=== PATIENT | male | born 1960 | race Caucasian/White ===

== ENCOUNTER 2025-02-18 00:54 | Emergency (ER) | payer OTHER ==
[~2025-02-18] VITALS: Ht 177.8 cm; Wt 75.5 kg
[2025-02-18 01:26] LABS: IMMATURE GRANULOCYTE ABSOLUTE 0.04 K/uL (0-1); NUCLEATED RED BLOOD CELLS 0.0 % (0.0-0.19); PLATELET COUNT (AUTO) 234 K/uL (130-400); RED BLOOD CELL COUNT(AUTO) 5.18 MIL/uL (4.50-6.20); RED CELL DISTRIBUTION WIDTH 13.2 % (11.0-15.5); WHITE BLOOD COUNT (AUTO) 11.4 K/uL (4.8-10.8)
[2025-02-18 01:32] LABS: CREATININE 1.5 mg/dL (0.5-1.3); GLOMERULAR FILTR. RATE CALC 52.0 mL/min (>90); GLUCOSE,RANDOM 141.0 mg/dL (70-105); SODIUM SERUM 138.0 mmol/L (136-145); UREA NITROGEN, BLOOD 24.0 mg/dL (7-18)
[2025-02-18] MEDS: LACTATED RINGERS 1000ML IV STA ×2 (01:35→04:45)
--- NOTE | 2025-02-18 01:35 | ERN ---
General Chief Complaint: Flank Pain Stated Complaint: LEFT FLANK PAIN Time Seen by MD: 01:00 Source: patient History of Present Illness Initial Comments Patient is a healthy 64-year-old male who comes in with intermittent left groin and testicular pain that seems to migrate around to his left flank. This is the 1st time he has had this problem. It also seems to be associated with inability to urinate. Otherwise asymptomatic no fevers no chills. Allergies: Coded Allergies: No Known Drug Allergies (Unverified Allergy, Unknown, 02/18/25) Past Medical History Past Medical History: No Pertinent History Past Surgical History: None Constitutional: (-) chills, (-) diaphoresis, (-) fever, (-) malaise, (-) weakness, (-) other documentation EENTM: (-) eye pain, (-) blurred vision, (-) tearing, (-) double vision, (-) ear pain, (-) ear discharge, (-) nose pain, (-) nose congestion, (-) throat pain, (-) Throat swelling, (-) mouth pain, (-) tooth pain, (-) mouth swelling, (-) other documentation Respiratory: (-) cough, (-) orthopnea, (-) short of breath, (-) stridor, (-) wheezing, (-) other documentation Cardiovascular: (-) chest pain, (-) edema, (-) palpitations, (-) syncope, (-) dyspnea on exertion, (-) other documentation Gastrointestinal/Abdominal: (-) nausea, (-) vomiting, (-) diarrhea, (-) abdominal pain, (-) abdominal distention, (-) constipation, (-) rectal bleeding, (-) dark stool/melena, (-) other documentation Genitourinary: (-) penile discharge, (-) dysuria, (-) frequency, (-) hematuria, (-) pain, (-) other documentation Physical Exam General Appearance: (+) no apparent distress Orientation: (+) alert, (+) oriented x 3 Head/Face Trauma: No Eye: bilateral eye normal inspection, bilateral eye PERRL, bilateral eye EOMI Ear, Nose, Throat: (+) hearing grossly normal, (+) normal ENT inspection, (+) moist mucous membraine Neck: (+) normal inspection, (+) supple, (+) full range of motion Respiratory: (+) chest non-tender, (+) lungs clear, (+) well ventilated Heart: (+) regular, (+) no gallop Vascular: (+) no edema, (+) normal peripheral pulse, (+) no JVD Gastrointestinal: (+) soft, (+) non-tender, (+) bowel sound present Back: (+) no CVA tenderness Results Laboratory and Microbiology Lab and Micro Result Laboratory Tests Test 02/18/25 01:12 02/18/25 03:38 White Blood Count 11.4 K/uL (4.8-10.8) H Red Blood Count 5.18 MIL/uL (4.50-6.20) Hemoglobin 15.4 g/dL (14.0-18.0) Hematocrit 45.3 % (42-54) Mean Corpuscular Volume 87.5 fL (79-99) Mean Corpuscular Hemoglobin 29.7 pg (27.0-33.0) Mean Corpuscular Hemoglobin Concent 34.0 g/dL (32.0-36.0) Red Cell Distribution Width 13.2 % (11.0-15.5) Platelet Count 234 K/uL (130-400) Mean Platelet Volume 10.5 fL (7.5-10.5) Immature Granulocyte % (Auto) 0.4 % (0-1) Neutrophils (%) (Auto) 84.4 % (40.0-77.0) H Lymphocytes (%) (Auto) 5.0 % (21.0-51.0) L Monocytes (%) (Auto) 9.6 % (3.0-13.0) Eosinophils (%) (Auto) 0.2 % (0.0-8.0) Basophils (%) (Auto) 0.4 % (0.0-5.0) Neutrophils # (Auto) 9.6 K/uL (1.8-7.7) H Lymphocytes # (Auto) 0.6 K/uL (1.0-4.8) L Monocytes # (Auto) 1.1 K/uL (0.1-1.0) H Eosinophils # (Auto) 0.02 K/uL (0.00-0.70) Basophils # (Auto) 0.04 K/uL (0.00-0.20) Absolute Immature Granulocyte (auto 0.04 K/uL (0-1) Nucleated Red Blood Cells 0.0 % (0.0-0.19) White Cell Morphology Comment See comments Sodium Level 138 mmol/L (136-145) Potassium Level 3.8 mmol/L (3.5-5.1) Chloride Level 98 mmol/L (101-111) L Carbon Dioxide Level 31 mmol/L (21-32) Blood Urea Nitrogen 24 mg/dL (7-18) H Creatinine 1.5 mg/dL (0.5-1.3) H Glomerular Filtration Rate Calc 52 mL/min (>90) Random Glucose 141 mg/dL (70-105) H Total Calcium 9.6 mg/dL (8.5-10.1) Urine Color YELLOW (YELLOW) Urine Appearance CLEAR (CLEAR) Urine pH 6.0 (5.0-8.0) Urine Specific Hartman OVER (1.001-1.031) Urine Protein 20 mg/dL (NEGATIVE) H Urine Glucose (UA) NEGATIVE mg/dL (NEGATIVE) Urine Ketones 20 mg/dL (NEGATIVE) H Urine Occult Blood SMALL (NEGATIVE) H Urine Nitrate NEGATIVE (NEGATIVE) Urine Bilirubin NEGATIVE mg/dL (NEGATIVE) Urine Urobilinogen 0.2 mg/dL (0.2-1.0) Urine Leukocyte Esterase NEGATIVE Spencer/uL Urine RBC 11-25 /HPF (0-1) H Urine WBC 0-1 /HPF (0-1) Urine Bacteria None /HPF (None Seen) MDM MDM: Differential diagnosis: Intermittent testicular torsion, epididymitis, renal stone, dehydration, UTI Rationale: Tests considered and ordered secondary to shared decision making include: Previous outside records reviewed: Old ER visits. Risk of complication and/or morbidity or mortality of patient management: None Medications-Per medication reconciliation Need for hospitalization: Patient does meet criteria for hospitalization. Need for emergency major/minor surgery: No There are no social concerns with this patient. Prescription drug management Prescriptions will include symptomatic care Patient's prior external medical records from other ER visits were reviewed by me as indicated. Prior testing and results from previous visits were reviewed. Prior tests were taken into account with medical decision making and resource utilization, independent historian/historians were used to obtain complete medical history. I independently interpreted the test that were performed, results were reviewed by me and considered findings on radiology if ordered. Patient's laboratory analysis shows that he is severely dehydrated. He has a an acute kidney injury. His urine is so concentrated that the machine could not measure it specific gravity. And they were lot of ketones in his urine as well. CT scan shows nephro lithiasis in his bilateral kidneys and hydro ureter on the left with a an obstructing stone just proximal to his bladder. White blood cell count is very slightly elevated. Patient lives in [place]. He does not have signs of infection. I think his white blood cell elevation is from the dehydration. I have cautioned him to go to his primary care doctor in the morning when he arrives in [place]. I am going to give him a g of Ancef now and a prescription for pain killers that he can fill at any pharmacy. ED Course Orders Procedure Category Date Status Time Basic Metabolic Panel LAB 02/18/25 Complete 01:16 Cbc With Differential LAB 02/18/25 Complete 01:16 Urinalysis Profile LAB 02/18/25 Complete 01:16 Ct Abdomen/Pelvis CT 02/18/25 Resulted W/Wo Contras 01:16 Psa Ultrasensitive LAB 02/18/25 In Process 01:16 Lactated Ringers PHA 02/18/25 Complete 1000ml (Lactated 01:16 Ketorolac PHA 02/18/25 Complete Tromethamine 30mg/Ml 01:30 Iohexol (Omnipaque) PHA 02/18/25 Complete 02:19 Cefazolin Sodium 1 Gm PHA 02/18/25 Transmitted Vial (Ancef 1 Gm V 04:29 Lactated Ringers PHA 02/18/25 Transmitted 1000ml (Lactated 04:29 Current Medications Medications (Trade) Dose Ordered Sig/Raymond Route PRN Reason Start Time Stop Time Status Last Admin Dose Admin Iohexol (Omnipaque) 35,000 mg STK-MED ONCE IV 02/18/25 02:19 02/18/25 02:19 DC Ketorolac Tromethamine (toRADol) 30 mg ONCE ONCE IVP 02/18/25 01:30 02/18/25 01:31 DC Lactated Ringer's (Lactated Ringers 1000ml) 1,000 ml BOLUS STAT IV 02/18/25 01:16 02/18/25 01:19 DC 02/18/25 01:35 Vital Signs Date Time Temp Pulse Resp B/P (MAP) Pulse Ox O2 Delivery O2 Flow Rate FiO2 02/18/25 01:20 98.2 82 17 155/85 98 Room Air* 0 21 02/18/25 00:55 97.2 88 18 204/103 99 Room Air 0 DX & DISP Disposition: Discharge Departure Impression: Primary Impression: Hydronephrosis, left Additional Impression: Dehydration Condition: Stable Scripts Ketorolac Tromethamine (Toradol) 10 Mg Tab 1 TAB PO Q6HPRN PRN for pain for 5 Days, #20 TAB 0 Refills Prov: SANDY ACEVEDO MD 02/18/25 Additional Instructions: Your groin pain and your back pain are most likely explained by a kidney stone that is trapped in the connection between your kidneys and your bladder. The structures called a ureter and urine is backing up from the blockage into your left kidney. You also have nonobstructing kidney stones in both of your kidneys. In addition your laboratory studies show that you are severely dehydrated and your kidneys has been affected by this. The CT scan also showed some hernias in her bilateral groin. They are small and do not need to be treated right now. I do not know why you have so many kidney stones. It is possible that you have had dehydration events in the past. It is possible you may have something in her metabolism that causes you to have kidney stones. Once you reach [place] I recommend you see your primary care physician regarding your renal injury and you see a urologist regarding your kidney stones. If you have any signs or symptoms of an infection such as fever chills weakness fast beating heart please go see a doctor immediately this this maybe signs that the urine collection in her left kidney has become infected. SANDY ACEVEDO MD Feb 18, 2025 01:35
[2025-02-18] MEDS ORDERED: IOHEXOL 350 MG/ML 100ML INFUS..BTL IV ONE (02:19)
--- NOTE | 2025-02-18 02:59 | HMCIMG ---
EXAM: CT Abdomen and Pelvis without and with IV contrast. CLINICAL HISTORY: Nephrolithiasis. TECHNIQUE: Thin collimated axial CT images of the abdomen and pelvis were obtained, with sagittal and coronal reformatted images also submitted. A CT scan is done according to ALARA (As Low As Reasonably Achievable). COMPARISON: None. FINDINGS: Unremarkable visualized lung parenchyma. There is no focal abnormality appreciated within the liver, gallbladder, pancreas, spleen, or adrenals. There is a 2 mm calculus and another 3 mm calculus in the lower pole of the left kidney. 3 mm calculus in the interpolar region of the right kidney. 3.1 cm cortical cyst in the upper pole of the left kidney. Mild left hydronephrosis and hydroureter. 3 mm calculus in the left lower ureter. Mild left perinephric fat stranding. There is no obvious bowel wall thickening. Bowel loops are normal in caliber without evidence of obstruction or ileus. The appendix is unremarkable. There is no abnormality within the urinary bladder. Unremarkable reproductive organs. Small bilateral inguinal hernias containing fat. No lymphadenopathy. No free fluid. No pneumoperitoneum. No gross abnormality in the abdominal vessels. There is no acute osseous abnormality. IMPRESSIONS: Obstructive calculus in the left lower ureter with mild left hydronephrosis and hydroureter. Nonobstructive bilateral renal calculi. Bosniak classification 1 left renal cyst. Small, uncomplicated, fat-containing inguinal hernias bilaterally. /Marlys
--- NOTE | 2025-02-18 03:51 | NUR ---
PATIENT DENIES PAIN, DECLINES PAIN MEDICATION AT THIS TIME
[2025-02-18 03:53] LABS: ADD UA MICROSCOPIC YES; APPEARANCE,URINE CLEAR (CLEAR); GLUCOSE, URINE (UA) NEGATIVE (NEGATIVE); LEUKOCYTE ESTERASE ,URINE NEGATIVE Leu/uL (NEGATIVE); NITRATE,URINE NEGATIVE (NEGATIVE); OCCULT BLOOD,URINE SMALL (NEGATIVE)
--- NOTE | 2025-02-18 04:08 | NUR ---
PT CARE ASSUMED AT THIS TIME
[2025-02-18] MEDS ORDERED: KETO10 PO (04:35)
[2025-02-18 05:36] VITALS: BP 140/80; PULSE 79; RESP 16; TEMP 98.5; O2SAT 98
== END 2025-02-18 05:41 | disposition home or self-care (01) ==
LOC: EDH 00:54
DX: N13.2 Hydronephrosis with renal and ureteral calculous obstruction (principal); E86.0 Dehydration
CPT/HCPCS: 99285; 74178; 96365; 96361; 80048; 85025; 84153; 81001; 36415; J7120; J0690; Q9967; J1885